=== PATIENT | female | born 1995 | race Caucasian/White ===

== ENCOUNTER 2021-09-04 17:48 | Emergency (ER) | payer OTHER ==
[2021-09-04 18:03] VITALS: BP 106/75; PULSE 114; TEMP 97.8; BMI 36.6
[2021-09-04] MEDS ORDERED: EPINEPHrine/PF 1 MG/1 ML (1:1,000) AMPULE IM ONE (18:15)
[2021-09-04] MEDS ORDERED: FAMOTIDINE 20 MG/50 ML IVPB 20 MG/50 ML MG IVPB ONE (18:18)
[2021-09-04] MEDS ORDERED: methylPREDNISolone NA SUCC 125 MG/2 ML VIAL IVPB ONE (18:18)
[2021-09-04] MEDS ORDERED: SODIUM CHLORIDE 1,000 ML IV STA (18:19)
[2021-09-04] MEDS ORDERED: EPINEPHrine/PF 1 MG/1 ML (1:1,000) AMPULE ONE (18:20)
[2021-09-04] MEDS ORDERED: ONDANSETRON 4 MG/2 ML VIAL IVPB ONE (18:47)
[2021-09-04] MEDS ORDERED: ONDANSETRON 4 MG/2 ML VIAL ONE (18:48)
[2021-09-04] MEDS ORDERED: methylPREDNISolone NA SUCC 125 MG/2 ML VIAL ONE (19:03)
== END 2021-09-04 21:29 | disposition home or self-care (01) ==
LOC: FER 17:48
PROC: 3E033NZ Introduction of Analgesics, Hypnotics, Sedatives into Peripheral Vein, Percutaneous Approach (ICD-10-PCS; principal; 2021-09-04)
PROC: 3E023NZ Introduction of Analgesics, Hypnotics, Sedatives into Muscle, Percutaneous Approach (ICD-10-PCS; 2021-09-04)
PROC: 3E033GC Introduction of Other Therapeutic Substance into Peripheral Vein, Percutaneous Approach (ICD-10-PCS; 2021-09-04)
PROC: 3E033GC Introduction of Other Therapeutic Substance into Peripheral Vein, Percutaneous Approach (ICD-10-PCS; 2021-09-04)
PROC: 3E0337Z Introduction of Electrolytic and Water Balance Substance into Peripheral Vein, Percutaneous Approach (ICD-10-PCS; 2021-09-04)
PROC: 3E033GC Introduction of Other Therapeutic Substance into Peripheral Vein, Percutaneous Approach (ICD-10-PCS; 2021-09-04)
DX: L50.9 Urticaria, unspecified (principal)
CPT/HCPCS: 99284-25